=== PATIENT | female | born 1995 | race Caucasian/White ===

== ENCOUNTER → 2017-08-04 | Outpatient (CLI) | payer MEDICAID ==
--- NOTE | 2017-08-04 19:28 | Diagnostic Imaging Report ---
EXAMINATION: Ultrasound of the right breast, complete. INDICATION: Nipple discharge. COMPARISON: There are no prior studies available for comparison. FINDINGS: There is no discrete solid or cystic mass within the right breast. There is no sign of an abscess either. There does not appear to be any significant dilatation of the ducts in the retroareolar region of the breast. IMPRESSION: 1. There is no abnormality to account for the patient's nipple discharge. Clinical followup is recommended. 2. If clinical concern regarding an underlying abnormality persists and further imaging is desired, then MRI would be recommended. ACR BI-RADS Category 1: Negative. Dictated by: Dictated on workstation # [id number]
== END ==
LOC: RAD 13:35
PROVIDERS: ATTEND Nurse Practitioner Family
DX: N64.52 Nipple discharge (principal)
CPT/HCPCS: 76641

== ENCOUNTER 2020-11-22 10:50 | Outpatient (CLI) | payer SELFPAY ==
[~2020-11-22] VITALS: Ht 160 cm; Wt 72.6 kg
[2020-11-22 10:45] VITALS: BP 128/83
[2020-11-22] MEDS ORDERED: diphenhydrAMINE 50 MG/ML INJ (BENADRYL) IV PRN (11:00)
[2020-11-22] MEDS ORDERED: CASIRIVIMAB/IMDEVIMAB 1,200 MG in NS (IVPB) 250 ML IV ONE (11:00)
[2020-11-22] MEDS ORDERED: ACETAMINOPHEN 500 MG TAB (TYLENOL) PO PRN (11:00)
[2020-11-22] MEDS ORDERED: ONDANSETRON 4 MG/2 ML (SDV) Z0FRAN IV PRN (11:00)
[2020-11-22] MEDS ORDERED: EPINEPHrine INJECTION 1 MG/ML AMP IM PRN (11:00)
[2020-11-22 11:49] VITALS: BP 122/71
== END 2020-11-22 12:24 | disposition home or self-care (01) ==
LOC: INFUSION 10:50
PROVIDERS: ATTEND Nurse Practitioner Family
DX: Z23 Encounter for immunization (principal); U07.1 COVID-19